=== PATIENT | male | born 1990 | race Two or more races ===

== ENCOUNTER 2020-10-22 11:20 | Emergency (ER) | payer SELFPAY ==
[~2020-10-22] VITALS: Ht 190.5 cm; Wt 99.8 kg
[2020-10-22 11:20] VITALS: BP 155/81
[2020-10-22] MEDS ORDERED: TDAP [DIPH/PERTUSSIS/TET] 0.5 ML VIAL IM ONE ×2 (11:40→12:00)
--- NOTE | 2020-10-22 12:32 | NUR ---
Patient discharged to home in stable condition. Written and verbal after care instructions given. Patient verbalizes understanding of instruction.
== END 2020-10-22 12:32 | disposition home or self-care (01) ==
LOC: ER 11:30
DX: S70.372A Other superficial bite of left thigh, initial encounter (principal); J45.909 Unspecified asthma, uncomplicated; W54.0XXA Bitten by dog, initial encounter; Y93.89 Activity, other specified; Y92.89 Other specified places as the place of occurrence of the external cause; Y99.8 Other external cause status
CPT/HCPCS: 90715